=== PATIENT | female | born 1975 ===

== ENCOUNTER 2017-11-04 13:38 | Emergency (ER) | payer SELFPAY ==
[2017-11-04 14:30] VITALS: BMI 29.4
[2017-11-04] MEDS ORDERED: Lactated Ringer's 1,000 ML IV SCH ×2 (15:45→17:30)
[2017-11-04 16:40] LABS: BASO % 0.3 % (0.0-2.0); EOS # 0.2 K/uL (0.0-0.7); LYMPH # 2.3 K/uL (1.0-4.3); LYMPH % 22.7 % (20.0-40.0); MEAN CELL VOLUME 79.1 fl (81.0-99.0); MEAN CORPUSCULAR HEMOGLOBIN 25.9 pg (27.0-31.0); MEAN CORPUSCULAR HGB CONC 32.8 g/dL (33.0-37.0); MEAN PLATELET VOLUME 9.2 fl (7.2-11.7); MONO # 0.6 K/uL (0.0-0.8); MONO % 5.7 % (0.0-10.0); NEUT % 69.3 % (50.0-75.0); RED CELL DISTRIBUTION WIDTH 14.9 % (11.5-14.5)
--- NOTE | 2017-11-04 22:41 | OBHP ---
Datetime: 11/04/2017 19:40 IP Adm Impression: , intrauterine IP Admit Plan: Observation/Evaluation Admit Comment, IP Provider: Pt is a 42 y/o female with IUP at 22 wks gestation by 8 week U/S pr esenting to RACHELLE s/p fall at 1:50pm to evaluate fetus health. Pt states she was waking in the kitchen and the floor was wet so she slipped and fell on her buttocks and left leg. Pt denies trauma to her abdomen or head. Pt reports that she momentarily had abdominal contractions for a few minutes after t he fall but has not had any since. Denies vaginal LOF or vaginal bleeding. Reports good movemen t. PNC: Pt is seen by OBGYN in [place]. acheived via IVF. Does not have care re cords with her. 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 As per patient, remainder of PNC is unremarkable. Reports mild headache starting a few hours ago that she feels is d ue to feeling anxious. Denies blurry vision, epigastric or RUQ pain, or LE swelling. OBHx: Pt has had 4 prior C section, latest one complicated with gestational HTN and one 1st trimes ter TOP. PMHX: Asthma, uses Albuterol only 2x/year Medications: PNV, Methyldopa 250mg PO BID Allergies: NKDA Vitals: BP 119/65, HR 80, O2 sat 93% on rm air General: Comfortable, NAD Cardiac: RRR, normal S1, S2, no murmurs Lungs: CTABL Abdomen: Gravid, NT, no bruising Extremity: No pedal edema FHR: Category 1, no decelerations Assessment. IUP at 22 wks gestation s/p fall. FHR reasssuring. No signs of active labor. Plan:Observation. Continuous monitoring. Monitor maternal Vital signs. IV fluids, CBC, Type and screen. Abdominal U/S, limited. Discussed with OB Attending monorail operator Stephania Duncan, PGY1 ob[facility] addendum: pt seen _ examined by me. agree with above assessment and plan. us-wnl, RH+ kb pending p: d/c home Pelvic Type - PN: Adequate Extremities - PN: Normal Abdomen - PN: Normal Back - PN: Normal Breast - PN: Normal Lungs - PN: Normal Heart - PN: Normal Thyroid - PN: Normal Neurologic - PN: Normal HEENT - PN: Normal General - PN: Normal Comments, ACOG Physical Exam: superficial laceration seen below left knee No bruising EGA AdmitDate IP: 21.1 Vital Signs Provider: Reviewed; Within Normal Limits IP Chief Complaint: evaluation; Trauma/Fall Genitourinary Exam: Normal DTRs - PN: Normal
[2017-11-05 04:42] VITALS: BP 118/67; PULSE 79; O2SAT 99
--- NOTE | 2017-11-05 08:19 | US ---
PROCEDURE: OB Pelvic Ultrasound HISTORY: uncertain gestational age and abdominal trauma COMPARISON: None available. FINDINGS: UTERUS: Placenta: Anterior Presentation: Cephalic Heart rate: 154 bpm. BPD: 5.1 centimeter compatible with estimated gestational age of 21 weeks, 3 days. HC: 18.1 centimeter compatible with estimated gestational age of 21 weeks, 3 days. AC: 15.7 centimeter compatible with estimated gestational age of 20 weeks, 6 days. FL: 3.5 centimeter compatible with estimated gestational age of 21 weeks, 0 days. age (Ultrasound estimated): 21 weeks, 0 days Blanca-gestational hemorrhage: None. Date of delivery (Ultrasound estimated) : 03/17/2018 CERVIX: Long and closed. No cervical abnormality seen. RIGHT OVARY: Not visualized LEFT OVARY: Not visualized FREE FLUID: None. OTHER FINDINGS: None. IMPRESSION: Single live intrauterine with a average ultrasound age of 21 weeks, 0 days.
== END 2017-11-04 21:45 | disposition home or self-care (01) ==
LOC: H.EROB2 13:38
DX: O26.92 Pregnancy related conditions, unspecified, second trimester (principal); Z04.3 Encounter for examination and observation following other accident; W01.0XXA Fall on same level from slipping, tripping and stumbling without subsequent striking against object, initial encounter; Y93.01 Activity, walking, marching and hiking; Y92.000 Kitchen of unspecified non-institutional (private) residence as the place of occurrence of the external cause; Z36.9 Encounter for antenatal screening, unspecified; Z3A.21 21 weeks gestation of pregnancy; O99.512 Diseases of the respiratory system complicating pregnancy, second trimester; J45.909 Unspecified asthma, uncomplicated; O13.2 Gestational [pregnancy-induced] hypertension without significant proteinuria, second trimester